=== PATIENT | male | born 1990 | race Caucasian/White ===

== ENCOUNTER → 2017-01-05 | Day surgery (SDC) | payer OTHER ==
[~2017-01-05] MED LIST: FLEXERIL10 MG PO; LIORESAL10 MG PO; TRAMADOL HCL50 M2 PO; VOLTAREN100 GM TOP; VOLTAREN75 MG PO
--- NOTE | ~2017-01-05 | OR ---
Unit #: [id number] #: [id number] Patient: MARCIA RANKIN [id number] [address] [address] [id number] O MR#: [id number] NAME: MARCIA RANKIN ROOM: Date of Procedure: 01/05/2017 Admission Date: 01/05/2017 Surgeon: Jacques Burk M.D. : 1990 Attending Physician: Jacques Burk M.D. Referring Physician: Jacques Burk M.D. Primary Care Physician: Sylvester Fraser M.D. OPERATIVE REPORT PREOPERATIVE DIAGNOSIS Left inguinal hernia. POSTOPERATIVE DIAGNOSES 1. Direct left inguinal hernia. 2. Cord lipoma. PROCEDURES PERFORMED 1. Laparoscopic preperitoneal inguinal hernia repair of left-sided direct inguinal hernia. 2. Removal of cord lipoma. 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 ANESTHESIA General. ESTIMATED BLOOD LOSS Minimal. IV FLUIDS 800 crystalloid. COMPLICATIONS None. INDICATIONS FOR PROCEDURE The patient is a 26-year-old gentleman with acute onset of left groin pain. Physical examination is consistent with hernia, although I did not palpate a very large bulge if any. He presents for laparoscopic repair. DESCRIPTION OF PROCEDURE The patient was taken to the operating theater and placed in supine position. Anesthesia was induced. The abdomen was prepped and draped. Infraumbilical incision was then made. A small incision was made in the anterior sheath. I created the preperitoneal space with blunt dissection. A Veress needle was placed intra-abdominally. The abdomen was insufflated to 15 mmHg with CO2. Under direct vision, I placed a 5-mm port. The patient was placed in Trendelenburg. I identified a left-sided direct inguinal hernia and some fullness there consistent with probable lipoma. Right side was normal. The pneumoperitoneum was released. Using the Unit #: [id number] #: [id number] Patient: MARCIA RANKIN [employer] balloon dissection system, I created the preperitoneal space on the left side only. I then dissected the lateral space, identified the cord. The cord was skeletonized in the hernia sac. Peritoneal reflection was then reduced. There was found to be a large cord lipoma. This was also reduced. I identified Juan Luis ligament. The direct hernia had been reduced with creation of preperitoneal space. I placed a large 3DMax mesh into position. This was anteriolized and then held in this place where it covered the direct and indirect spaces nicely. I then released the pneumopreperitoneum and care was taken to avoid the peritoneum sliding posterior to the mesh. The ports were removed. The fascia was closed with 0 Vicryl. The patient tolerated the procedure well and sent to the recovery room in good condition. Dictated by... Abdi Ku/shiv TD: 01/06/2017 07:28 JOB #: [id number] OPERATIVE REPORT Page 1 of 1 X Jacques Burk MD X PROCEDURE OPERATIVE NOTE
== END | disposition home or self-care (01) ==
LOC: CSUR 06:29
DX: K40.90 Unilateral inguinal hernia, without obstruction or gangrene, not specified as recurrent (principal); D17.6 Benign lipomatous neoplasm of spermatic cord
CPT/HCPCS: C1781; J0131; J0330; J0690; J1170; J1885; J2250; J2405; J2710; J3010